=== PATIENT | female | born 1985 | race Caucasian/White ===

== ENCOUNTER 2018-02-20 08:00 | Outpatient (CLI) | payer OTHER | END 2018-02-20 08:01 | LOC: LAB.R 08:00 | PROVIDERS: ATTEND Obstetrics & Gynecology | DX: N76.0 Acute vaginitis (principal) | CPT/HCPCS: 87480; 87491; 87510; 87591; 87660 ==

== ENCOUNTER 2018-12-21 12:51 | Outpatient (CLI) | payer OTHER ==
--- NOTE | 2018-12-21 17:53 | CT Report ---
Reason: ATTN DEFECITI DISORDER, PANIC DISORDER, MIGRAINE Procedure Date: 12/21/2018 Accession Number: [id number] / [id number] Procedure: CT - HEAD WO CPT Code: FULL RESULT: EXAM: CT HEAD EXAM DATE: 12/21/2018 01:02 PM. CLINICAL HISTORY: ATTN DEFECIT DISORDER, PANIC DISORDER, MIGRAINE. Headache. COMPARISON: None. TECHNIQUE: Multiaxial CT images were obtained from the foramen magnum to the vertex. Reformats: Sagittal and coronal. IV contrast: None. In accordance with CT protocol optimization, one or more of the following dose reduction techniques were utilized for this exam: automated exposure control, adjustment of mA and/or KV based on patient size, or use of iterative reconstructive technique. FINDINGS: Parenchyma: No intraparenchymal hemorrhage. No evidence of mass, midline shift, or CT findings of infarction. Garcia-white differentiation is distinct. Extraaxial Spaces: Normal for age. No subdural or epidural collections identified. Ventricles: Normal in size and position. Sinuses and Orbits: Imaged paranasal sinuses, orbits, and mastoids show no significant abnormality. Bones: No evidence of fracture or calvarial defect. Other: 9 mm in diameter round subcutaneous nodule left frontal region, possible sebaceous cyst. Clinical correlation suggested. IMPRESSION: Negative brain. See above. RADIA
== END 2018-12-21 12:52 | disposition home or self-care (01) ==
LOC: DI 12:51
PROVIDERS: ATTEND Family Medicine
DX: G43.909 Migraine, unspecified, not intractable, without status migrainosus (principal); F90.0 Attention-deficit hyperactivity disorder, predominantly inattentive type; F41.0 Panic disorder [episodic paroxysmal anxiety]
CPT/HCPCS: 70450

== ENCOUNTER 2019-03-29 17:04 | Emergency (ER) | payer OTHER ==
[2019-03-29 17:13] VITALS: BP 134/97
--- NOTE | 2019-03-29 17:31 | ED Physician Documentation ---
PD HPI SKIN - Stated complaint Stated Complaint: ABSCESS IN ARMPIT - Chief complaint Chief Complaint: Wound - History obtained from History obtained from: Patient - History of Present Illness Timing - onset: How many days ago (22) Timing - duration: Days Timing - details: Gradual onset, Still present Location: LUE Quality / character: Painful, Raised, Swelling. No: Draining Associated symptoms: No: Fever, Myalgias, Joint pain Contributing factors: Other (happens every year) Similar symptoms before: Diagnosis (abscess in axilla) Recently seen: Not recently seen - Additional information Additional information: Previously well 34-year-old female has developed swelling and redness in the left axilla she is had this happen to her previously a number of times usually about once per year and she states that usually she is had to go on antibiotic and this is gone away. She has not had to have I&D previously Review of Systems Constitutional: denies: Fever, Chills, Myalgias, Fatigue Respiratory: denies: Cough GI: denies: Vomiting PD PAST MEDICAL HISTORY - Present Medications Home Medications: Ambulatory Orders Medication Instructions Recorded Confirmed Sulfamethox/Trimeth 800/160 1 each PO BID #14 tablet 03/29/19 [Bactrim Ds] - Allergies Allergies/Adverse Reactions: Allergies Allergy/AdvReac Type Severity Reaction Status Date / Time No Known Drug Allergies Allergy Verified 03/29/19 17:13 PD ED PE NORMAL - Vitals Vital signs reviewed: Yes (hypertension ) - General General: Alert and oriented X 3, No acute distress, Well developed/nourished - HEENT HEENT: Atraumatic, PERRL, EOMI - Respiratory Respiratory: No respiratory distress - Derm Derm: Normal color, Warm and dry, No rash - Extremities Extremities: No deformity, No edema, Other (There is a swelling in the left axilla about 1cm X3cm tender and without fluctuance. There is direct erythema and not much surrounding erythema. ) - Psych Psych: Normal mood, Normal affect Results - Vitals Vitals: Vital Signs - 24 hr 03/29/19 17:08 Temperature 36.7 C Heart Rate 90 Respiratory 16 Rate Blood Pressure 134/97 H O2 Saturation 99 Oxygen O2 Source Room air PD MEDICAL DECISION MAKING - ED course Complexity details: considered differential, d/w patient ED course: 34-year-old female with a developing abscess in the left axilla is placed on to Septra and I discussed with the patient the phenomena of ripening and reasons to return to the emergency department. I have asked the patient to use a warm compress. Departure - Departure Disposition: 01 Home, Self Care Clinical Impression: Abscess of left axilla Condition: Stable Instructions: ED Staph Infec Abx Tx Only Follow-Up: Ralph Ramos MD [Primary Care Provider] - Prescriptions: Sulfamethox/Trimeth 800/160 [Bactrim Ds] 1 each PO BID #14 tablet
== END 2019-03-29 17:38 | disposition home or self-care (01) ==
LOC: ED 17:04
DX: L02.412 Cutaneous abscess of left axilla (principal)
CPT/HCPCS: 99282; 99284

== ENCOUNTER 2019-12-10 09:31 | Outpatient (CLI) | payer BC | END 2019-12-10 09:32 | disposition home or self-care (01) | LOC: LAB 09:31 | PROVIDERS: ATTEND Family Medicine | DX: Z11.59 Encounter for screening for other viral diseases (principal) | CPT/HCPCS: 81599 ==

== ENCOUNTER 2020-02-25 13:06 | Outpatient (CLI) | payer BC | END 2020-02-25 13:07 | disposition home or self-care (01) | LOC: COV 13:06 | PROVIDERS: ATTEND Family Medicine | DX: Z20.828 Contact with and (suspected) exposure to other viral communicable diseases (principal) ==

== ENCOUNTER 2020-04-21 12:42 | Outpatient (CLI) | payer BC | END 2020-04-21 12:43 | disposition home or self-care (01) | LOC: LAB 12:42 | PROVIDERS: ATTEND Family Medicine | DX: N94.89 Other specified conditions associated with female genital organs and menstrual cycle (principal); N64.4 Mastodynia | CPT/HCPCS: 36415; 84702 ==

== ENCOUNTER 2020-12-23 19:30 | Outpatient (CLI) | payer BC | END 2020-12-23 19:31 | disposition home or self-care (01) | LOC: COV 19:30 | PROVIDERS: ATTEND Family Medicine | DX: R05 Cough (principal); M79.10 Myalgia, unspecified site; R53.83 Other fatigue; R07.0 Pain in throat; R09.81 Nasal congestion; J34.89 Other specified disorders of nose and nasal sinuses; R43.9 Unspecified disturbances of smell and taste; Z20.822 Contact with and (suspected) exposure to COVID-19 ==

== ENCOUNTER 2021-12-01 10:19 | Emergency (ER) | payer BC, OTHER ==
[2021-12-01 10:28] VITALS: BP 122/90
--- NOTE | 2021-12-01 11:06 | XRAY Report ---
PROCEDURE: Ankle 3 View LT INDICATIONS: Trauma TECHNIQUE: 3 views of the ankle were acquired. COMPARISON: None 9 FINDINGS: Bones: Small calcification adjacent to tip of medial malleolus is seen suggestive of age-indeterminat e avulsion injury. No other fracture or dislocation. Ankle mortise is normally aligned. No suspiciou s bony lesions. Soft tissues: Ankle soft tissue swelling is seen. No tibiotalar joint effusion. Achilles tendon appe ars normal. IMPRESSION: 1. Age indeterminant avulsion injury involving tip of medial malleolus. No other fracture or dislocat ion. Ankle mortise is congruent. 2. Ankle soft tissue swelling. Reviewed by: Kane Sandoval MD on 12/01/2021 11:04 AM PDT Approved by: Kane Sandoval MD on 12/01/2021 11:04 AM PDT Station ID: [id number]
== END 2021-12-01 12:32 | disposition left against medical advice (07) ==
LOC: ED 10:19
DX: Z53.21 Procedure and treatment not carried out due to patient leaving prior to being seen by health care provider (principal)